=== PATIENT | male | born 1990 | race Caucasian/White ===

== ENCOUNTER 2019-07-17 13:35 | Emergency (ER) | payer OTHER ==
[~2019-07-17] VITALS: Ht 195.6 cm; Wt 116.4 kg
[2019-07-17 13:36] VITALS: BP 165/92
[2019-07-17] MEDS ORDERED: IBUP-1022 PO (14:19)
--- NOTE | 2019-07-17 22:48 | REP ---
ANKLE: REASON: Trauma. COMPARISON: None. FINDINGS: No acute fracture or destructive osseous lesion. The mortise is intact. There is diffuse soft tissue swelling. Electronically Signed by Adria Downey DO 07/18/2019 07:56 A
== END 2019-07-17 14:30 | disposition home or self-care (01) ==
LOC: M ED 13:35
DX: S93.402A Sprain of unspecified ligament of left ankle, initial encounter (principal); X50.1XXA Overexertion from prolonged static or awkward postures, initial encounter; Y92.093 Driveway of other non-institutional residence as the place of occurrence of the external cause